=== PATIENT | male | born 2000 | race Two or more races ===

== ENCOUNTER 2024-05-22 03:55 | Emergency (ER) | payer MEDICAID, SELFPAY ==
--- NOTE | ~2024-05-22 | XR_ITS ---
CLINICAL HISTORY: cough 2 view chest x-ray Comparison: None Findings: No consolidation or effusion. Normal size heart. No acute fracture. IMPRESSION: 1. No acute findings. This document has been electronically signed by: Alessia Pedraza MD on 05/22/2024 05:04:09
[2024-05-22 04:04] VITALS: BP 121/66; PULSE 101; RESP 20; TEMP 37.7; O2SAT 98; BMI 38.9
--- OUTSIDE RECORDS SUMMARY | 2024-05-22 05:37 | XMS_ITS | Clinical Summary ---
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 Unavailable Primary Care Provider Unavailabl e Social History Tobacco Use Types Packs/Day Years Used Date Smoking Tobacco: Never Smokeless Tobacco: Never Alcohol Use Standard Drinks/Week Comments Never 0 (1 standard drink = 0.6 oz pur e alcohol) Sex and Gender Information Value Date Recorded Sex Assigned at Not on file Legal Sex Male 5:40 AM EST Gender Identity Not on file Sexual Orientation Not on file Obstetrics History Last Filed Vital Signs Vital Sign Reading Time Taken Comments Blood Pressure - - Pulse - - Temperature - - Respiratory Rate - - Oxygen Saturation - - Inhaled Oxygen Concentration - - Weight 93.4 kg (206 lb) 05/01/2022 2:04 PM EDT Height 160 cm (5' 3 ) 05/01/2022 2:04 PM EDT Body Mass Index 36.49 05/01/2022 2:04 PM EDT Plan of Treatment Health Maintenance Due Date Last Done Comments HPV Vaccines (1 - Male 3-dos e series) 05/29/2015 Meningococcal B Vaccine (1 o f 2 - Standard) 2016 DTaP,Tdap,and Td Vaccines (1 - Tdap) 05/29/2019 Hepatitis B Vaccines (1 of 3 - 19+ 3-dose series) 05/29/2019 Depression Screening 03/06/2023 HIV Screening 03/06/2023 Hepatitis C Screening 03/06/2023 Social Influencers of Health Screening 03/06/2023 COVID-19 Vaccine (1 - 2023-2 5 season) 2023 Influenza Vaccine (Season Ended) 2024 HIB Vaccines Aged Out No longer eligi ble based on patient's age to complete this topic Hepatitis A Vaccines Aged Out No long er eligible based on patient's age to complete this topic IPV Vaccines Aged Out No longer eligi ble based on patient's age to complete this topic MMR Vaccines Aged Out No longer eligi ble based on patient's age to complete this topic Meningococcal ACWY Vaccine Aged Out N o longer eligible based on patient's age to complete this topic Pneumococcal Vaccine: Pediat rics (0 to 5 Years) and At-Risk Patients (6 to 64 Years) Aged Out No longer eligible b ased on patient's age to complete this topic RSV Immunization Patients Un pascual 20 months Aged Out No longer eligible b ased on patient's age to complete this topic Varicella Vaccines Aged Out No longer eligible based on patient's age to complete this topic
--- OUTSIDE RECORDS SUMMARY | 2024-05-22 05:37 | XMS_ITS | Patient Health Record ---
Author Organization [facility] Address [address] [place] [phone] Care Team Providers Care Hospitality Services Manager Name Role Phone [facility] Primary Care Provider Unavailable Rebecca Juárez Unavailable [phone] Reason For Referral No Information Medications Medication SIG (Take, Route, Frequency, Duration) Notes Start Date End Date Status multivitamin Multiple Vitamins 1 tab(s) orally once a day for 30 day(s) Active Social History Tobacco Use: Social History Observation Description Date Details (start date - stop date) Light tobacco s moker NA - NA Tobacco Use Assessment MU Question Answer Notes What is your current smoking status? light tobacco smoker bums a cigarrette here and there Problems Problem Type SNOMED Code ICD Code Onset Dates Problem Status W/U Status Risk Notes Problem Cannabis abuse (43435705) Cannabis abuse, uncomplicated (F12.10) Active confirmed Problem Sheltered homelessness (422607482315270 ) Sheltered homelessness (Z59.01) Active confirmed Plan Of Treatment Pending Test Test Name Order Date HIV 1/2 ANTIGEN/ANTIBODY,FOURTH GENERATI ON W/RFL 11/05/2019 LIPID PANEL 11/05/2019 COMPREHENSIVE METABOLIC PANEL-[facility] 10/08 CBC (H/H, RBC, INDICES, WBC, PLT) 2019 HEMOGLOBIN A1c 11/05/2019 HEPATITIS B CORE AB TOTAL 11/05/2019 HEPATITIS B SURFACE ANTIGEN W/REFL CONFI RM 11/05/2019 HEPATITIS C AB W/REFL TO HCV RNA, QN, PC R 11/05/2019 TSH W/REFLEX TO FT4 11/05/2019 HEPATITIS A AB, TOTAL W/REFL IGM 020 CHLAMYDIA/N. GONORRHOEAE RNA, TMA 2019 SYPHILIS ANTIBODY CASCADING REFLEX 11/04 HEPATITIS B SURFACE AB IMMUNITY, QN 10/08 Insurance Providers Payer Name Payer Address Payer Phone Subscriber Number Group Number Insured Name Patient Relationship to Insured Coverage Start Date Coverage End Date [place] Medicaid C3 [address] [place], [place] [id number] Ba Rebolledo Self - patient is the insured 0 Medical (General) History Medical History History ICD Code hx depression/anxiety hx marijuana use Surgical History Surgery Date(Month/Year) Hospitalization History Reason Date(Month/Year) childhood ailments
[2024-05-22 05:46] LABS: Influenza A PCR NEGATIVE (Negative); Influenza B PCR NEGATIVE (Negative); Resp Syncy Virus RNA Qual PCR NEGATIVE (Negative); SARS COV2 PCR INHOUSE NEGATIVE (Negative)
--- NOTE | 2024-05-22 06:49 | ED_ITS ---
HPI - Ear Problem General Chief complaint: Ear Problems Stated complaint: right ear pain Time Seen by Provider: 05/22/24 06:46 Source: patient Mode of arrival: ambulatory Limitations: no limitations History of Present Illness ED Provider: JANICE HOWELL Narrative: 23 yo male with PMH of asthma started with URI this past few days now has R ear pain and swelling in front of ear on cheek. No trauma, swimming, does not get frequent ear infections. He is able to eat and drink. Has sick contacts at [employer]. No fevers reported. MD Complaint: ear pain Location: right ear Duration: constant Severity: moderate Relieving factors: nothing Exacerbating factors: position of head and palpation Associated symptoms ear: headache and other (lymphadenopathy) Treatment prior to arrival: none Related Data Previous Rx's ?Medication ?Instructions ?Recorded amoxicillin 875 mg-potassium 1 tab PO BID #14 tabs 05/22/24 clavulanate 125 mg tablet ofloxacin 0.3 % ear drops 10 drp otic (ear) right DAILY 7 05/22/24 days #5 mL Allergies Allergy/AdvReac Type Severity Reaction Status Date / Time No Known Allergies Allergy Verified 05/22/24 04:07 Review of Systems Review of Systems: Constitutional : No Fever, No Chills, No Fatigue ENT/Mouth : No sore throat, pos Rhinorrhea Eyes: No Eye Pain, No Swelling, No Redness, pos ear pain Cardiovascular : No Chest Pain, No SOB, No Dyspnea on Exertion Respiratory : No Cough, No Sputum Gastrointestinal : No Nausea, No Vomiting, No Diarrhea, No abdominal Pain Genitourinary : No Dysuria, No Urinary Frequency, No Hematuria, Musculoskeletal : No joint pain, No Myalgias, No Joint Swelling Skin : No Skin Lesions, No rash Neuro : No Weakness, No Numbness, No Dizziness, positive Headache All other systems reviewed and are negative PMFSH Past Medical History Attestation statement: The following information was validated with the patient. Source: old records reviewed Medical History Asthma Social History Social History (Updated 05/22/24 @ 07:30 by Karley Moya DO) Patient Tobacco Use Status: Tobacco use Unknown Physical Exam Vital Signs: Vital Signs: Last Vital Signs Temp 100 F 05/22/24 04:04 Pulse 101 H 04/17/25 04:04 Resp 20 05/22/24 04:04 BP 121/66 05/22/24 04:04 Pulse Ox 98 05/22/24 04:04 O2 Del Method Room Air 05/22/24 04:04 BMI result Body Mass Index 38.9 Appearance: Alert. Oriented X3. No acute distress. Eyes: Pupils equal, round and reactive to light. ENT: Pharynx normal. R TM bulging red and effusion noted, ext ear normal, canal mildly red and swollen, mild R preauricular lymphadenopathy no overlying celluitis, mastoid not ttp Neck: Normal inspection. Neck supple. CVS: Normal heart rate and rhythm. Pulses normal. Respiratory: No respiratory distress. Breath sounds normal. Abdomen: Soft and nontender. Skin: Skin warm and dry. Normal skin color. Normal skin turgor. Extremities: No lower extremity edema. No calf ttp Neuro: Oriented X 3. No motor deficit. No sensory deficit. CN2-12 intact Medical Decision Making Medical Decision Making [facility] Narrative: 23 yo male PMH of asthma here with URI symptoms now with R ear pain - on exam R ear there is AOM and Otitis externa with preauricular lymph node he has no intra oral issues and his neck is soft and supple. I am going to start on abx and DC home with precautions. He has normal ext ear and his mastoid is not tender to palpation Differential Diagnosis Differential Diagnoses: The differential diagnosis associated with the presentation includes AOM, otitis externa, URI Admission/Observation Consideration of admission/observation: Escalation of care including admission/observation considered can be managed as outpatient with oral abx Lab Data [facility] Lab Attestation statement: I reviewed the patient's lab results. Labs: Lab Results 05/22/24 Range/Units 04:12 Influenza Type A (PCR) NEGATIVE (Negative) Influenza Type B (PCR) NEGATIVE (Negative) RSV RNA Qual (PCR) NEGATIVE (Negative) SARS-CoV-2 RNA (RT-PCR) NEGATIVE (Negative) Independent Interpretation I performed an independent interpretation of an: Plain X-Ray (normal ) Radiology Impression Discussion of test interpretation with radiology: I have reviewed the radiologist's reading. Prescription Management I considered prescription management with: Antibiotic and Other Discharge Plan Discharge Clinical Impression: Otitis externa Qualifiers: Otitis externa type: diffuse Chronicity: acute Laterality: right Qualified Code(s): H60.311 - Diffuse otitis externa, right ear Otitis media Qualifiers: Otitis media type: suppurative Chronicity: acute Laterality: right Recurrence: non-recurrent Spontaneous tympanic membrane rupture: without spontaneous rupture Qualified Code(s): H66.001 - Acute suppurative otitis media without spontaneous rupture of ear drum, right ear Patient Disposition: Home, Self-Care Instructions: Otitis Externa (ED), Ear Infection (ED) Additional Instructions: negative for covid, flu, rsv chest xray normal lymph node is swollen due to infection return for worsening symptoms, confusion, pain or any other concerns finish antibiotics On amoxicillin-clavulanate, softer bowel movements are to be expected. Call your provider if you move your bowels more than 4 times a day, your bowel movements are almost all liquid, or you get a rash.? Prescriptions: New amoxicillin-pot clavulanate 875-125 mg tablet 1 tab PO BID Qty: 14 0RF ofloxacin 0.3 % drops 10 drp otic (ear) right DAILY 7 Days Qty: 5 0RF Stand Alone Forms: Work/School Release Print Language: Welsh
[2024-05-22] MEDS: Amoxicillin/Potassium Clav 875 MG TABLET PO (07:28)
[2024-05-22 07:38] VITALS: BP 121/66; PULSE 101; RESP 20; TEMP 37.7; O2SAT 98
== END 2024-05-22 07:39 | disposition home or self-care (01) ==
PROVIDERS: Emergency Provider Emergency Medicine
DX: H60.311 Diffuse otitis externa, right ear (principal); H66.001 Acute suppurative otitis media without spontaneous rupture of ear drum, right ear; H92.01 Otalgia, right ear; R51.9 Headache, unspecified; J45.909 Unspecified asthma, uncomplicated; Z03.818 Encounter for observation for suspected exposure to other biological agents ruled out
CPT/HCPCS: 0241U; 71046; 99282; 99283

== ENCOUNTER → 2024-05-22 04:10 | Outpatient (BNV) | payer MEDICAID, SELFPAY | PROVIDERS: Emergency Provider Emergency Medicine; Visit Provider Radiology Diagnostic Radiology | DX: R05.9 Cough, unspecified (principal) | CPT/HCPCS: 71046 ==